=== PATIENT | male | born 1945 | race Caucasian/White ===

== ENCOUNTER → 2018-07-22 | Outpatient (CLI) | payer MEDICARE ==
[~2018-07-22] MED LIST: CRESTOR20 MG PO; FINASTERIDE5 MG PO; FLOMAX0.4 MG PO; IOPAMIDOL 370 MG/ML 200 ML INFUS..BTL INJ ONE; LISINOPRIL10 MG PO; METOPROLOL SUCC25 MG PO; PACERONE100 MG PO; SODIUM CHLORIDE 0.9% 100 ML 100 ML ONE; SODIUM CHLORIDE 0.9% 250ML 250 ML ONE; SODIUM CHLORIDE 0.9% 500ML 500 ML ONE; WARFARIN SODIUM1 MG PO; WARFARIN SODIUM2 MG PO
[2018-07-22 11:05] LABS: CREATININE, SERUM 1.5 mg/dL (0.72-1.25)
--- NOTE | 2018-07-23 09:10 | Diagnostic Imaging Report ---
History: Right neck blockage Comparison studies:None Technique: Axial images were obtained from the thoracic inlet. 3-D reconstructions and maximum intensity projection reformats were performed. Coronal and sagittal images reconstructed from the axial data. Intravenous contrast: 100 cc of Omnipaque 300. Dose modulation, iterative reconstruction, and/or weight based adjustment of the mA/kV was utilized to reduce the radiation dose to as low as reasonably achievable. Findings: Percentage of stenosis will be based on the NASCET criteria. Aortic arch and major vessels: Patent. Nonstenotic atherosclerotic calcifications of the aortic arch and branches. Common carotid arteries: Patent. Nonstenotic calcified and noncalcified plaque at the distal right common carotid artery. Right internal carotid artery: Patent. Calcified and noncalcified plaque at the right carotid bulb results in more than 70% stenosis. Nonstenotic atherosclerotic calcifications of the carotid siphon. Left internal carotid artery: Patent. Calcified and noncalcified atherosclerotic plaque at the bulb, proximal cervical and cavernous internal carotid artery results in less than 10% stenosis. Right vertebral artery: Patent. Calcified atherosclerotic plaque at the proximal cervical segment (V1) results in 40-50% stenosis. Left vertebral artery: More than 90% stenosis at the proximal cervical segment (V1) with some areas of nonopacification. Distal reconstitution with good opacification of the V2, V3 and V4 segments. Multiple subcentimeter thyroid hypodensities partially visualized, cannot be further corrected right. Sternotomy changes partially visualized. Cervical spine: C4-5, obliterated intervertebral space. Diffuse disc osteophyte complex, bilateral uncinate process hypertrophy and facet hypertrophy results in mild canal stenosis, severe right and moderate left foraminal narrowing. C5-6, obliterated intervertebral space. Bilateral uncinate process hypertrophy and facet hypertrophy results in mild canal stenosis, severe right and moderate left foraminal narrowing. At C6-7, obliterated intervertebral space. Diffuse disc osteophyte complex, bilateral uncinate process hypertrophy results in mild canal stenosis and moderate bilateral foraminal narrowing. IMPRESSION: Severe stenosis at the right carotid bulb secondary to calcified and noncalcified atherosclerotic plaque. Severe long segment stenosis at the proximal cervical left vertebral artery (V1 segment) with good distal opacification. Moderate stenosis at the proximal right vertebral artery (V1 segment). Other scattered atherosclerotic plaque without hemodynamically significant stenosis. Degenerative changes of the cervical spine as described Signed by: DR Greg Farmer M.D. on 07/23/2018 9:07 AM
== END ==
LOC: EDBD 09:57 → CT 09:57
PROVIDERS: ATTEND Internal Medicine Cardiovascular Disease
DX: I65.21 Occlusion and stenosis of right carotid artery (principal)
CPT/HCPCS: 36415; 70498; 82565; 84520; 96361; J7040; J7050; Q9967; 96360

== ENCOUNTER 2018-08-06 07:38 | Inpatient (IN) | payer MEDICARE ==
--- NOTE | 2018-08-03 10:53 | Diagnostic Imaging Report ---
PROCEDURE: Frontal and lateral views of the chest. COMPARISON: None. INDICATIONS: PREOPERATIVE CHEST XRAY FOR SURGERY FINDINGS: Lines/tubes: None. Lungs: Moderate lung volumes. Mild patchy opacities at the lung bases. No evidence of lobar consolidation or pulmonary edema. Linear subsegmental atelectasis at the left mid lung zone. Pleura: There is no pleural effusion or pneumothorax. Heart and mediastinum: The cardiomediastinal silhouette is unremarkable. Atherosclerotic aortic calcification. Bones: No acute bony abnormality. Status post median sternotomy. IMPRESSION: Mild patchy bibasilar opacities, likely atelectasis. No acute radiographic abnormality. Dictated by: CHAVA BERMUDEZ M.D. on 08/03/2018 at 11:03 Electronically approved by: CHAVA BERMUDEZ M.D. on 08/03/2018 at 11:03
[2018-08-03 11:02] LABS: INR 1.27
[2018-08-03 11:03] LABS: PARTIAL THROMBOPLASTIN TIME 29.4 seconds (23.8-35.5)
[2018-08-03 11:07] LABS: ANION GAP 12.5 mmol/L (8-16); CALCIUM 10.4 mg/dL (8.4-10.2); CREATININE, SERUM 1.47 mg/dL (0.72-1.25); POTASSIUM 4.5 mmol/L (3.5-5.1)
[2018-08-03 11:34] LABS: BASOPHILS # (AUTO) 0.1 (0.0-0.1); EOSINOPHILS # (AUTO) 0.5 (0.0-0.4); HEMOGLOBIN 15.4 g/dL (14.0-18.0); LYMPHOCYTES # (AUTO) 3.7 (1.0-3.2); LYMPHOCYTES % 40.3 % (18.0-39.1); MEAN CORPUSCULAR HEMOGLOBIN 32.5 pg (28-32); MEAN CORPUSCULAR HGB CONC 32.1 g/dL (31-35); MEAN CORPUSCULAR VOLUME 101.3 fL (81-99); MONOCYTES % 10.7 % (4.4-11.3); NEUTROPHILS # (AUTO) 3.9 (2.1-6.9); NEUTROPHILS % 42.8 % (38.7-80.0); PLATELET COUNT 238 x10e3/uL (140-360); RED BLOOD COUNT 4.74 x10e6/uL (4.3-5.7); RED CELL DISTRIBUTION WIDTH 14.4 % (11.7-14.4)
[2018-08-06] VITALS (23 sets, daily range): BP systolic 110–154; BP diastolic 55–88
[~2018-08-06] VITALS: Ht 185.4 cm; Wt 97.6 kg
[~2018-08-06 07:38] MED LIST changes: -IOPAMIDOL 370 MG/ML 200 ML INFUS..BTL INJ ONE; -SODIUM CHLORIDE 0.9% 100 ML 100 ML ONE; -SODIUM CHLORIDE 0.9% 250ML 250 ML ONE; -SODIUM CHLORIDE 0.9% 500ML 500 ML ONE
--- OUTSIDE RECORDS SUMMARY | 2018-08-06 07:40 | XMS REPORT ---
Author Author [facility] Address Unknown Phone Unavailable Care Team Providers Care Application Development Director Name Role Phone IRENE GARCIA Unavailable Unavailable ALICE VAUGHN Unavailable Unavailable Problems This patient has no known problems. Allergies, Adverse Reactions, Alerts This patient has no known allergies or adverse reactions. Medications This patient has no known medications. Results Test Description Test Time Test Comments Text Results Atomic Results Result Comments CHEST 2 VIEWS 2018-08-03 11:03:00 [place] [address] Patient Name: LIANE GONZALEZ MR #: [id number] : 1945 Age/Sex: 73/M Req #: [id number] Adm Physician: Ordered by: IRENE GARCIA MD Report #: [id number] Location: OR Room/Bed: Procedure: [id number] DX/CHEST 2 VIEWS Exam Date: Exam Time: REPORT STATUS: Signed PROCEDURE: Frontal and lateral views of the chest. COMPARISON: None. INDICATIONS: PREOPERATIVE CHEST XRAY FOR SURGERY FINDINGS: Lines/tubes: None. Lungs: Moderate lung volumes. Mild patchy opacities at the lung bases. No evidence of lobar consolidation or pulmonary edema. Linear subsegmental atelectasis at the left mid lung zone. Pleura: There is no pleural effusion or pneumothorax. Heart and mediastinum: The cardiomediastinal silhouette is unremarkable. Atherosclerotic aortic calcification. Bones: No acute bony abnormality. Status post median sternotomy. IMPRESSION: Mild patchy bibasilar opacities, likely atelectasis. No acute radiographic abnormality. Dictated by: CHAVA BERMUDEZ M.D. on 08/03/2018 at 11:03 Electronically approved by: CHAVA BERMUDEZ M.D. on 08/03/2018 at 11:03 Dictated By: CHAVA BERMUDEZ MD 1103 Transcribed By: MARIVEL on 08/03/18 1103 COPY TO: IRENE GARCIA MD CTA NECK 2018-07-23 08:41:00 [place] [address] Patient Name: LIANE GONZALEZ MR #: [id number] : 1945 Age/Sex: 73/M Req #: [id number] Adm Physician: Ordered by: ALICE VAUGHN MD Report #: [id number] Location: CT Room/Bed: Procedure: [id number] CT/CTA NECK Exam Date: 07/22/18 Exam Time: 1200 REPORT STATUS: Signed History: Right neck blockage Comparison studies:None Technique: Axial images were obtained from the thoracic inlet. 3-D reconstructions and maximum intensity projection reformats were performed. Coronal and sagittal images reconstructed from the axial data. Intravenous contrast: 100 cc of Omnipaque 300. Dose modulation, iterative reconstruction, and/or weight based adjustment of the mA/kV was utilized to reduce the radiation dose to as low as reasonably achievable. Findings: Percentage of stenosis will be based on the NASCET criteria. Aortic arch and major vessels: Patent. Nonstenotic atherosclerotic calcifications of the aortic arch and branches. Common carotid arteries: Patent. Nonstenotic calcified and noncalcified plaque at the distal right common carotid artery. Right internal carotid artery: Patent. Calcified and noncalcified plaque at the right carotid bulb results in more than 70% stenosis. Nonstenotic atherosclerotic calcifications of the carotid siphon. Left internal carotid artery: Patent. Calcified and noncalcified atherosclerotic plaque at the bulb, proximal cervical and cavernous internal carotid artery results in less than 10% stenosis. Right vertebral artery: Patent. Calcified atherosclerotic plaque at the proximal cervical segment (V1) results in 40-50% stenosis. Left vertebral artery: More than 90% stenosis at the proximal cervical segment (V1) with some areas of nonopacification. Distal reconstitution with good opacification of the V2, V3 and V4 segments. Multiple subcentimeter thyroid hypodensities partially visualized, cannot be further corrected right. Sternotomy changes partially visualized. Cervical spine: C4-5, obliterated intervertebral space. Diffuse disc osteophyte complex, bilateral uncinate process hypertrophy and facet hypertrophy results in mild canal stenosis, severe right and moderate left foraminal narrowing. C5-6, obliterated intervertebral space. Bilateral uncinate process hypertrophy and facet hypertrophy results in mild canal stenosis, severe right and moderate left foraminal narrowing. At C6-7, obliterated intervertebral space. Diffuse disc osteophyte complex, bilateral uncinate process hypertrophy results in mild canal stenosis and moderate bilateral foraminal narrowing. IMPRESSION: Severe stenosis at the right carotid bulb secondary to calcified and noncalcified atherosclerotic plaque. Severe long segment stenosis at the proximal cervical left vertebral artery (V1 segment) with good distal opacification. Moderate stenosis at the proximal right vertebral artery (V1 segment). Other scattered atherosclerotic plaque without hemodynamically significant stenosis. Degenerative changes of the cervical spine as described Signed by: DR Greg Farmer M.D. on 07/23/2018 9:07 AM Dictated By: GREG JOY MD 6 Transcribed By: MARY on 07/23/18906 COPY TO: ALICE VAUGHN MD
[2018-08-06] MEDS ORDERED: HEPARIN SOD/SOD CHLORIDE 1,000 ML ONE (08:18)
[2018-08-06 09:10] LABS: INR 0.95; PROTHROMBIN TIME 13.6 seconds (11.9-14.5)
[2018-08-06 09:11] LABS: PARTIAL THROMBOPLASTIN TIME 27.3 seconds (23.8-35.5)
[2018-08-06] MEDS ORDERED: SODIUM CHLORIDE 0.9% 500ML 500 ML ONE (09:21)
[2018-08-06] MEDS ORDERED: HEPARIN SOD (PORCINE) 1000 UNIT/ML 30ML ONE (09:21)
[2018-08-06] MEDS ORDERED: LIDOCAINE HCL 1% 2 ML AMP ONE (09:21)
[2018-08-06] MEDS ORDERED: MUPIROCIN 2% OINT 22 GM TUBE ONE (09:21)
[2018-08-06] MEDS ORDERED: PROTAMINE SULFATE 10 MG/ML 5 ML VIAL ONE (09:21)
[2018-08-06] MEDS ORDERED: GELATIN SPONGE 12-7MM ONE ×2 (09:22→10:17)
[2018-08-06] MEDS ORDERED: THROMBIN-JMI W/DIL SPRAY PUMP ACTUATOR 20000 UNIT KIT ONE (12:06)
[2018-08-06 12:32] LABS: BASOPHILS # (AUTO) 0.1 (0.0-0.1); BASOPHILS % 0.6 % (0.0-1.0); EOSINOPHILS # (AUTO) 0.3 (0.0-0.4); EOSINOPHILS % 2.8 % (0.0-6.0); HEMATOCRIT 41.6 % (38.2-49.6); HEMOGLOBIN 13.9 g/dL (14.0-18.0); LYMPHOCYTES # (AUTO) 4.4 (1.0-3.2); LYMPHOCYTES % 37.2 % (18.0-39.1); MEAN CORPUSCULAR HEMOGLOBIN 33.1 pg (28-32); MEAN CORPUSCULAR HGB CONC 33.4 g/dL (31-35); MONOCYTES # (AUTO) 0.5 (0.2-0.8); MONOCYTES % 4.1 % (4.4-11.3); NEUTROPHILS # (AUTO) 6.6 (2.1-6.9); PLATELET COUNT 209 x10e3/uL (140-360); RED CELL DISTRIBUTION WIDTH 14.1 % (11.7-14.4)
[2018-08-06 12:53] LABS: ALBUMIN 3.4 g/dL (3.5-5.0); ALBUMIN/GLOBULIN RATIO 1.2 (0.8-2.0); ANION GAP 12.9 mmol/L (8-16); CALCIUM 9.4 mg/dL (8.4-10.2); CREATININE, SERUM 1.29 mg/dL (0.72-1.25); POTASSIUM 4.9 mmol/L (3.5-5.1)
[2018-08-06] MEDS ORDERED: LABETALOL HCL 5 MG/ML 20ML VIAL IV PRN (13:15)
[2018-08-06] MEDS ORDERED: SODIUM CHLORIDE FLUSH 10 ML SYR INJ PRN (13:15)
[2018-08-06] MEDS ORDERED: HYDROCODONE/APAP 5MG-325MG TAB PO PRN (13:15)
[2018-08-06] MEDS ORDERED: ONDANSETRON HCL 4 MG ORAL DISINTEGRATING TAB PO PRN (13:15)
[2018-08-06] MEDS ORDERED: MORPHINE SULFATE 2 MG/ML SYR ONE (13:18)
[2018-08-06] MEDS: MORPHINE SULFATE 2 MG/ML SYR IV PRN ×2 (13:30→16:30)
[2018-08-06] MEDS: SODIUM CHLORIDE 0.9% 1000ML 1,000 ML IV SCH (14:00)
[2018-08-06] MEDS ORDERED: MIDAZOLAM HCL 2 MG/2 ML VIAL ONE (15:02)
[2018-08-06] MEDS ORDERED: FENTANYL CITRATE/PF 100MCG/2 ML INJ ONE (15:02)
--- NOTE | 2018-08-06 15:51 | Consultation ---
DATE OF CONSULTATION: August 06, 2018 CARDIOLOGY CONSULTATION REASON FOR CONSULTATION: Status post right carotid endarterectomy. HISTORY OF PRESENT ILLNESS: This is a pleasant, 73-year-old male who presented for outpatient right CEA. He was found to have a right carotid stenosis, and he was referred to Dr. Arreola for surgery. Today, he had a successful right CEA and he is doing good in the ICU. He has a history of chronic atrial fibrillation anticoagulated on Coumadin, which has been on hold due to the surgery. He denied any chest pain, any palpitations, any dizziness, any shortness of breath, any diaphoresis or headache. PAST MEDICAL HISTORY: Atrial fibrillation, BPH, hypertension, right carotid stenosis, hyperlipidemia and umbilical hernia. PAST SURGICAL HISTORY: CABG in 2013 and hernia repair. FAMILY HISTORY: Noncontributory. SOCIAL HISTORY: No smoking, no drinking. MEDICATIONS: See med list. ALLERGIES: PENICILLIN. REVIEW OF SYSTEMS: Negative except those mentioned above. He is status post right CEA. PHYSICAL EXAMINATION VITAL SIGNS: Temperature 98.2, heart rate 50, blood pressure 152/83, respirations 20, oxygen saturation 97%. GENERAL: He is awake, alert and oriented x3. HEENT: Mucous membranes moist. NECK: Supple. He has dressing on the right side of the neck with ice pack. CARDIOVASCULAR: S1 and S2 present. ABDOMEN: Soft. NEUROLOGIC: Intact. EXTREMITIES: No edema. LABORATORY DATA: Sodium 135, potassium 4.9, chloride 107, CO2 of 20, BUN 12, creatinine 1.29, glucose 134, white blood cells 11.9, hemoglobin 13.9, hematocrit 41.6, platelets 209,000, PT 13.6, PTT 27.3. INR 0.95. IMPRESSION 1. Right carotid stenosis. 2. Atrial fibrillation. 3. Hypertension. 4. Bradycardia. 5. History of benign prostatic hypertrophy. PLAN: 1. He is status post right carotid endarterectomy and he is doing good. 2. Will go ahead and continue with Lovenox. Coumadin on hold and will resume when okay with surgeon. Due to the bradycardia, he is asymptomatic. Will go ahead and hold the beta darnell today. Will continue his other home medications. Will go ahead and get an echocardiogram since there is none on record. Further cardiac workup pending clinical course. Thank you for this consultation. Dictated by Alta Aguilar NP Job#: [id number] GH
[2018-08-06] MEDS ORDERED: MORPHINE SULFATE INJ 4 MG/ML INJ IV PRN (16:45)
[2018-08-06] MEDS ORDERED: MORPHINE SULFATE 2 MG/ML SYR IV PRN (16:45)
[2018-08-06] MEDS: TAMSULOSIN HCL 0.4 MG CAP PO SCH (17:00)
--- NOTE | 2018-08-06 17:42 | Operative Report ---
DATE OF PROCEDURE: August 06, 2018 SAND SLINGER: Bobo Vasquez PREOPERATIVE DIAGNOSIS: Severe right carotid stenosis. POSTOPERATIVE DIAGNOSIS: Severe right carotid stenosis. OPERATION: Right carotid endarterectomy. DESCRIPTION OF OPERATION: After the satisfactory accomplishment of general anesthesia, the patient's right neck was prepped and draped in a sterile fashion. A standard right carotid incision was made along the anterior border of the sternomastoid muscle. The incision was carried down through the subcutaneous tissues to expose the right common carotid artery. The vessel was dissected free from the surrounding tissues and looped with a vessel loop. The dissection was carried distally to expose the internal carotid artery and the external carotid artery and its branches. Care was taken to identify and preserve all nerve structures in the region. Systemic heparin was given through a central vein cannula for the purposes of anticoagulation. The common, external and internal carotid arteries were briefly cross clamped. A long incision was made in the common carotid artery and carried distally through the bifurcation and well up into the internal carotid artery. A severely obstructing atherosclerotic plaque was quickly encountered. The plaque was removed using standard endarterectomy techniques. Following this, an indwelling shunt was placed in the common carotid artery proximally and the internal carotid artery distally thereby re-establishing blood flow to the right side of the brain for the remainder of the case. The surface of the vessel was then smoothed, and all loose debris was carefully removed. Heparinized saline flushes were routinely employed. A previously constructed Dacron patch was brought into the operative field and used to close the arteriotomy site. Running 7-0 Prolene was used for this patch closure. Prior to completing the closure, the shunt was removed and the vessel was flushed free from all air and debris. Once the sutures were tied, excellent pulses were located within the patch area and beyond. Protamine was given to counteract the effects of the heparin. All bleeding points were carefully cauterized, ligated or oversewn. The wound was then thoroughly irrigated with antibiotic solution, and closed in layers with interrupted 2-0 Vicryl for the deep tissues, and Monocryl subcuticular stitches for the skin. The patient was awakened in the operating room and found to be neurologically intact. The patient tolerated the procedure well, and was returned to the intensive care unit in good condition. Job#: [id number] CLINT
[2018-08-06] MEDS ORDERED: ONDANSETRON HCL INJ 2 MG/ML VIAL ONE (17:54)
[2018-08-06] MEDS ORDERED: LIDOCAINE HCL 2% LOCAL INJ 5 ML SDV VIAL INJ ONE (17:54)
[2018-08-06] MEDS ORDERED: DEXAMETHASONE SOD PHOS INJ 4 MG/ML VIAL ONE (17:54)
[2018-08-06] MEDS ORDERED: ROCURONIUM BROMIDE 10 MG/ML 5ML VIAL ONE (17:54)
[2018-08-06] MEDS ORDERED: SEVOFLURANE INHAL SOLN 250 ML PEN BTL ONE (17:54)
[2018-08-06] MEDS ORDERED: PROPOFOL IV EMULSION 10 MG/ML 20 ML VIAL ONE (17:54)
--- NOTE | 2018-08-06 18:14 | Consultation ---
DATE OF CONSULTATION: August 06, 2018 PULMONARY/CRITICAL CARE CONSULTATION REFERRING PHYSICIAN: Dr. Wes Arreola. CHIEF COMPLAINT: Is recent carotid endarterectomy, hypertension and history of thromboembolic disease. HISTORY OF PRESENT ILLNESS: The patient is a 73-year-old man. He had coronary bypass grafting 7 years ago. He had complications after the surgery including DVT and pulmonary embolism. He was placed on anticoagulants. He also developed atrial fibrillation and has remained on anticoagulants. The patient recently had a cardiovascular evaluation. His stress test showed no evidence of coronary artery disease but an arterial Duplex and subsequent CTA of the carotid arteries showed carotid artery stenosis. He underwent a right internal carotid endarterectomy. The procedure went well. The surgeon used a shunt and a Dacron graft was placed. PAST MEDICAL HISTORY: 1. DVT and pulmonary embolism. 2. Hypertension. PAST SURGICAL HISTORY: 1. Status post coronary artery bypass grafting 7 years ago. 2. Status post recent carotid enterectomy. FAMILY HISTORY: The family history is noncontributory. SOCIAL HISTORY: The patient is not an active smoker or drinker. ALLERGIES: PENICILLIN. REVIEW OF SYSTEMS: There is no fever or headache. He does have some difficulty with the perioral muscles on the right side of his face. He complains of some pain at the surgical site. He has no chest pain. He has no difficulty breathing. There is no abdominal pain. There is no nausea or vomiting. He has no hand weakness or leg weakness. PHYSICAL EXAMINATION: VITAL SIGNS: The patient is afebrile. Vital signs are stable. HEENT: Examination shows no facial swelling or erythema. Nasal mucosa is normal. The oropharynx is normal. LYMPHATIC: Examination shows no submandibular, cervical or supraclavicular adenopathy. CARDIAC: Exam reveals regular rate and rhythm with normal S1 and S2. No murmurs or rubs. LUNGS: Reveals clear breath sounds bilaterally. There is no wheezing. ABDOMEN: Is soft and nontender. There is no rebound or guarding. EXTREMITIES: Shows no leg edema or calf tenderness. There is no cyanosis or clubbing. SKIN: Examination shows no rashes. IMPRESSION 1. History of DVT and pulmonary embolism 6 years ago. 2. Atrial fibrillation. 3. Recent carotid endarterectomy. 4. Some swelling or paralysis of perioral muscles on the right side. PLAN: 1. Patient will be started on DVT prophylaxis. 2. Restart lisinopril, amiodarone and other cardiac medications. 3. Continue to monitor the facial muscles to make sure that the patient's function returns to normal. 4. Postoperative wound care and pain control. Job#: [id number] DANIELLE
[2018-08-06] MEDS ORDERED: NON-FORMULARY MEDICATION (Rosuvastatin Calcium (Crestor) 20 MG) PO SCH (21:00)
[2018-08-06] MEDS: CRESTOR 10MG PO SCH (21:05)
[2018-08-07] VITALS (49 sets, daily range): BP systolic 86–154; BP diastolic 31–100
[2018-08-07] MEDS: SODIUM CHLORIDE 0.9% 1000ML 1,000 ML IV SCH ×3 (00:03→19:15)
[2018-08-07 04:32] LABS: BASOPHILS % 0.1 % (0.0-1.0); HEMATOCRIT 38.7 % (38.2-49.6); HEMOGLOBIN 12.9 g/dL (14.0-18.0); LYMPHOCYTES # (AUTO) 2.4 (1.0-3.2); LYMPHOCYTES % 16.2 % (18.0-39.1); MEAN CORPUSCULAR HGB CONC 33.3 g/dL (31-35); MONOCYTES # (AUTO) 1.4 (0.2-0.8); MONOCYTES % 9.5 % (4.4-11.3); NEUTROPHILS # (AUTO) 10.8 (2.1-6.9); NEUTROPHILS % 73.8 % (38.7-80.0); PLATELET COUNT 200 x10e3/uL (140-360); RED BLOOD COUNT 3.91 x10e6/uL (4.3-5.7); RED CELL DISTRIBUTION WIDTH 14.3 % (11.7-14.4)
[2018-08-07 04:53] LABS: ANION GAP 13.8 mmol/L (8-16); BLOOD UREA NITROGEN 15 mg/dL (7-26); BUN/CREATININE RATIO 13 (6-25); CALCIUM 9.2 mg/dL (8.4-10.2); CARBON DIOXIDE 19 mmol/L (22-29); CHLORIDE 109 mmol/L (98-107); CREATININE, SERUM 1.13 mg/dL (0.72-1.25); EST GLOMERULAR FILTRATION RATE > 60 ML/MIN (60-); GLUCOSE 124 mg/dL (74-118); POTASSIUM 4.8 mmol/L (3.5-5.1); SODIUM 137 mmol/L (136-145)
[2018-08-07] MEDS: FINASTERIDE 5 MG TAB PO SCH (08:49)
[2018-08-07] MEDS: TAMSULOSIN HCL 0.4 MG CAP PO SCH ×2 (08:49→16:20)
[2018-08-07] MEDS: LISINOPRIL 10 MG TAB PO SCH (08:49)
[2018-08-07] MEDS: AMIODARONE HCL 200 MG TAB PO SCH (08:49)
[2018-08-07] MEDS: ENOXAPARIN SOD INJ 40 MG/0.4 ML SYR SC SCH (08:49)
[2018-08-07] MEDS ORDERED: NON-FORMULARY MEDICATION (Amiodarone Hcl (Pacerone) 100 MG) PO SCH (09:00)
--- NOTE | 2018-08-07 16:05 | Diagnostic Imaging Report ---
EXAMINATION: MRI of the brain without contrast. HISTORY: Left facial drooping, right endarterectomy the day before. COMPARISON: CTA on 07/22/2019 TECHNIQUE: Sagittal T2; axial DWI, T2, FLAIR, T1-IR, T2 gradient echo; coronal FLAIR. IMAGE QUALITY: Adequate. FINDINGS: Parenchyma: 1. 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 2. Few scatter T2 and FLAIR hyperintense foci, most likely nonspecific chronic microvascular ischemic changes. 3. No mass, hemorrhage, or acute infarcts. Skull: Possible right parietal scalp scar . Vessels: Expected flow voids present in the major arteries and dural sinuses. Extra-axial spaces: No abnormal signal intensity or mass effect. Brain volume: Within normal limits for age. Ventricles: No hydrocephalus or displacement. Foramen magnum: Unremarkable. Sella: Unremarkable. Paranasal / mastoid sinuses: No significant inflammatory disease. IMPRESSION: 1. No acute infarcts. 2. Mild chronic microvascular ischemic changes. 3. Chronic left cerebellar infarct. Signed by: Dr. Faviola Celaya M.D. on 08/07/2018 4:02 PM
--- NOTE | 2018-08-07 16:17 | Consultation ---
DATE OF CONSULTATION: August 07, 2018 NEUROLOGICAL CONSULTATION HISTORY OF PRESENT ILLNESS: Mr. Butler is a 73-year-old man with past medical history significant for hypertension, hyperlipidemia, atrial fibrillation, and prior thromboembolic event, admitted to [facility] on August 06, 2018, for a right carotid endarterectomy. As stated above, Mr. Butler underwent a right carotid endarterectomy with Dr. Wes Arreola on August 06, 2018. There were no reported complications during the procedure. Sometime on either August 06 or August 07, the patient was noted by multiple medical staff to have left facial asymmetry while smiling. More specifically, when smiling, the left corner of the mouth does not turn up. There is no facial asymmetry at rest, nor is there impairment in any other facial movements. Mr. Butler does not report a visual field cut or other disturbance, dysarthria, aphasia, hemiparesis, hemihypesthesia, dizziness, or confusion. The patient has not been allowed to ambulate postoperatively; so, he cannot say with certainty as to whether or not his gait or balance is impaired. Mr. Butler has not experienced similar symptoms previously. REVIEW OF SYSTEMS: Left facial asymmetry/weakness. Otherwise, the 12 point review of systems is negative. PAST MEDICAL HISTORY: Hypertension, hyperlipidemia, atrial fibrillation, history of a deep venous thrombosis and pulmonary embolus, benign prostatic hypertrophy. PAST SURGICAL HISTORY: Umbilical hernia repair, 4-vessel CABG, right carotid endarterectomy. PAST HOSPITALIZATIONS: Surgeries/procedures as listed. FAMILY HISTORY: The patient's paternal and maternal grandparents are . Their medical histories are unknown. The patient's father is from coronary artery disease with a myocardial infarction. His mother is from coronary artery disease with a myocardial infarction. Mr. Butler has brothers but is estranged from them. The patient has 1 son and 1 daughter, both of whom are alive and healthy. SOCIAL HISTORY: Mr. Butler is . He is retired. The patient does not report current or prior tobacco, alcohol, or recreational drug use. HOME MEDICATIONS: Warfarin 1 mg by mouth Mondays, Wednesdays, Fridays, Saturdays, and Sundays. Warfarin 2 mg by mouth on Tuesdays and . Amiodarone 100 mg by mouth daily. Lisinopril 10 mg by mouth daily. Metoprolol 25 mg by mouth twice daily. Rosuvastatin 20 mg by mouth at bedtime daily. Tamsulosin 0.4 mg by mouth twice daily. Finasteride 5 mg by mouth daily. ALLERGIES: PENICILLIN. NO KNOWN FOOD ALLERGIES. NO KNOWN ALLERGIES TO LATEX. NO KNOWN ALLERGIES TO IODINE OR OTHER CONTRAST MATERIALS. PHYSICAL EXAMINATION: VITAL SIGNS: Height 73 inches, weight 214.5 pounds, BMI 28.3 kg per meter squared. Blood pressure 112/54 mmHg. Pulse 84 beats per minute. Respiratory rate 16 breaths per minute. Oxygen saturation 97% on room air. GENERAL: The patient is awake and alert. Does not appear distressed. Overweight. HEENT: Normocephalic, atraumatic. Pupils are equal, round, and reactive to light. Moist mucous membranes. NECK: Supple. No appreciable thyromegaly. No appreciable carotid bruits on the left. The right side of the neck is bandaged. CARDIOVASCULAR: S1, S2, regular rate and rhythm. No murmurs, rubs, or gallops. RESPIRATORY: Clear to auscultation bilaterally. No wheezes, rhonchi, or rales. EXTREMITIES: The skin is warm and dry. No clubbing, cyanosis, or edema. The posterior tibial and dorsalis pedis pulses are 2+ and symmetric. SKIN: No rashes or lesions. NEUROLOGIC: Memory/Attention: The patient is awake and alert. Oriented to person, place, time, and situation. Cranial Nerves: Cranial nerve 1--Not tested. Cranial nerve 2, 3, 4 and 6--Pupils are equal and round, react briskly to light (from 4 mm to 2 mm). Extraocular movements intact. No nystagmus. Cranial nerve 5--Sensation to light touch is intact in the bilateral V1 through V3 distributions. Strength of the temporalis and masseter muscles is within normal limits. Cranial nerve 7--The face is symmetric at rest. There is left facial asymmetry noted with smiling only. There is subtle weakness of the lower facial muscles on the left side. Cranial nerve 8--Hearing is intact to finger rub bilaterally. Cranial nerve 9, 10--The soft palate elevates equally and symmetrically. Cranial nerve 11--Normal strength of the bilateral sternocleidomastoid and trapezius muscles. Cranial nerve 12--The tongue protrudes midline and moves symmetrically from side to side. Strength: Bulk is normal. Strength is 5/5 in the bilateral deltoids, biceps, triceps, wrist flexors and extensors, finger flexors and extensors, intrinsic hand muscles, hip flexors, knee flexors and extensors, ankle dorsiflexion and plantarflexion, and intrinsic foot muscles. Tone is normal. DTRs: Deep tendon reflexes are 2+ and symmetric at the triceps, biceps, brachioradialis, and patellas. Deep tendon reflexes are trace and symmetric at the Achilles. Plantar responses are flexor bilaterally. Sensation: Sensation is intact to light touch and pinprick in both arms and both legs. Cerebellar: Phshih-igkw-iznsel and heel-wilkinson movements are intact without dysmetria or other impairment. Gait: Deferred. Speech: Spontaneous speech is normal without appreciable dysarthria or aphasia. Repetition is intact. Involuntary Movements: None. Pronator Drift: None. LABORATORY DATA: A basic metabolic panel is significant for a chloride of 109, carbon dioxide of 19, and serum glucose of 124. A liver function panel drawn on August 06, 2018, is significant for a total protein of 6.3 and an albumin of 3.4. The CBC with differential and platelets reveals an elevated white blood cell count of 14.70 with 73.8% neutrophils, 16.2% lymphocytes, 9.5% monocytes, 0.0% eosinophils, and 0.1% basophils. The hemoglobin and hematocrit are 12.9 and 38.7, respectively. The platelet count is 200. The coagulation profile is within normal limits. DIAGNOSTIC STUDIES: A chest x-ray performed on August 03, 2018, revealed mild patchy bibasilar opacities, likely atelectasis. No acute radiographic abnormality. ASSESSMENT AND PLAN: Mr. Butler is a 73-year-old man with past medical history as detailed, admitted to [facility] on August 06, 2018, for right carotid endarterectomy. Status post right carotid endarterectomy, the patient was noted to have left facial asymmetry with smiling only. Other than this, the patient's neurological examination is nonfocal. Mr. Butler's laboratory data and other diagnostic studies have been reviewed and are documented above. 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 However, when undergoing a carotid endarterectomy, there is a risk of part of the plaque breaking off, traveling to the brain, and causing a stroke. Therefore, an MRI of the brain without contrast will be ordered for further evaluation. If this study is negative, Mr. Butler may be safely discharged to home tomorrow, August 08, 2018. Thank you for this consultation. I will continue to follow the patient while he remains in the hospital. Time spent 70 minutes. Job#: [id number]
[2018-08-07] MEDS ORDERED: WARFARIN SOD 1 MG TAB PO SCH (17:00)
[2018-08-07] MEDS: CRESTOR 10MG PO SCH (20:29)
[2018-08-08] VITALS (13 sets, daily range): BP systolic 129–169; BP diastolic 73–100
[2018-08-08] MEDS: SODIUM CHLORIDE 0.9% 1000ML 1,000 ML IV SCH (05:15)
[2018-08-08] MEDS: AMIODARONE HCL 200 MG TAB PO SCH (08:40)
[2018-08-08] MEDS: LISINOPRIL 10 MG TAB PO SCH (08:40)
[2018-08-08] MEDS: TAMSULOSIN HCL 0.4 MG CAP PO SCH (08:44)
[2018-08-08] MEDS: ENOXAPARIN SOD INJ 40 MG/0.4 ML SYR SC SCH (08:48)
[2018-08-08] MEDS: FINASTERIDE 5 MG TAB PO SCH (08:48)
== END 2018-08-08 10:30 | disposition home or self-care (01) | DRG 39 ==
LOC: OR 07:38 → PACU V 12:14 → ICU 12:56
PROVIDERS: ADMIT Thoracic Surgery (Cardiothoracic Vascular Surgery); ATTEND Thoracic Surgery (Cardiothoracic Vascular Surgery)
PROC: 03UK0JZ Supplement Right Internal Carotid Artery with Synthetic Substitute, Open Approach (ICD-10-PCS; 2018-08-06)
PROC: 03CK0ZZ Extirpation of Matter from Right Internal Carotid Artery, Open Approach (ICD-10-PCS; principal; 2018-08-06 09:30)
DX: I65.21 Occlusion and stenosis of right carotid artery (principal); I48.2 Chronic atrial fibrillation; I10 Essential (primary) hypertension; E78.5 Hyperlipidemia, unspecified; R00.1 Bradycardia, unspecified; N40.0 Benign prostatic hyperplasia without lower urinary tract symptoms; J44.9 Chronic obstructive pulmonary disease, unspecified; G47.33 Obstructive sleep apnea (adult) (pediatric); I25.10 Atherosclerotic heart disease of native coronary artery without angina pectoris; R29.810 Facial weakness; Z95.1 Presence of aortocoronary bypass graft; Z86.718 Personal history of other venous thrombosis and embolism; Z86.711 Personal history of pulmonary embolism; Z79.01 Long term (current) use of anticoagulants; Z82.49 Family history of ischemic heart disease and other diseases of the circulatory system; Z88.0 Allergy status to penicillin
CPT/HCPCS: 36415; 70551; 71046; 80048; 80053; 85025; 85610; 85730; 86850; 86900; 86920; 88304; 88311; 93005; 93306; C1768; J1100; J1644; J1650; J2001; J2250; J2270; J2405; J2720; J7030; J7040

== ENCOUNTER 2019-06-05 08:37 | Emergency (ER) | payer MEDICARE, OTHER ==
[~2019-06-05] VITALS: Ht 185.4 cm; Wt 97.5 kg
[2019-06-05 10:29] LABS: BASOPHILS # (AUTO) 0.1 (0.0-0.1); BASOPHILS % 0.7 % (0.0-1.0); EOSINOPHILS # (AUTO) 0.4 (0.0-0.4); EOSINOPHILS % 3.1 % (0.0-6.0); HEMATOCRIT 46.6 % (38.2-49.6); HEMOGLOBIN 15.2 g/dL (14.0-18.0); LYMPHOCYTES # (AUTO) 4.3 (1.0-3.2); LYMPHOCYTES % 38.2 % (18.0-39.1); MEAN CORPUSCULAR HEMOGLOBIN 32.5 pg (28-32); MEAN CORPUSCULAR HGB CONC 32.6 g/dL (31-35); MEAN CORPUSCULAR VOLUME 99.8 fL (81-99); MONOCYTES # (AUTO) 1.2 (0.2-0.8); MONOCYTES % 10.8 % (4.4-11.3); NEUTROPHILS # (AUTO) 5.3 (2.1-6.9); PLATELET COUNT 260 x10e3/uL (140-360); RED BLOOD COUNT 4.67 x10e6/uL (4.3-5.7); RED CELL DISTRIBUTION WIDTH 14.5 % (11.7-14.4)
[2019-06-05 10:30] LABS: BILIRUBIN,URINE NEGATIVE (NEGATIVE); CLARITY,URINE CLEAR (CLEAR); COLOR,URINE YELLOW (YELLOW); KETONES,URINE NEGATIVE (NEGATIVE); LEUKOCYTE ESTERASE ,URINE NEGATIVE (NEGATIVE); NITRITE,URINE NEGATIVE (NEGATIVE); PROTEIN,URINE DIPSTICK NEGATIVE (NEGATIVE); URINE UROBILINOGEN 0.2 mg/dL (0.2 - 1)
[2019-06-05] MEDS ORDERED: TRAMADOL HCL 50 MG TAB PO NR (10:30)
[2019-06-05 10:40] LABS: BACTERIA,URINE RARE /HPF; EPITHELIAL CELLS,URINE FEW /LPF; RBC,URINE 0-5 /HPF (0-5); WBC,URINE (MAN) 0-5 /HPF (0-5)
[2019-06-05 10:48] LABS: ALBUMIN 3.8 g/dL (3.5-5.0); ANION GAP 14.5 mmol/L (8-16); CALCIUM 10.2 mg/dL (8.4-10.2); CREATININE, SERUM 1.45 mg/dL (0.72-1.25); POTASSIUM 4.5 mmol/L (3.5-5.1)
== END 2019-06-05 12:38 | disposition home or self-care (01) ==
LOC: ER 08:37
DX: R33.9 Retention of urine, unspecified (principal); N40.1 Benign prostatic hyperplasia with lower urinary tract symptoms; I10 Essential (primary) hypertension; I25.10 Atherosclerotic heart disease of native coronary artery without angina pectoris; Z95.1 Presence of aortocoronary bypass graft; K43.9 Ventral hernia without obstruction or gangrene
CPT/HCPCS: 36415; 80053; 81001; 85025; 87086; 99283

== ENCOUNTER 2019-06-06 09:52 | Emergency (ER) | payer MEDICARE ==
[~2019-06-06] VITALS: Ht 185.4 cm; Wt 93.4 kg
[2019-06-06 11:18] LABS: BILIRUBIN,URINE NEGATIVE (NEGATIVE); CLARITY,URINE CLEAR (CLEAR); COLOR,URINE YELLOW (YELLOW); KETONES,URINE NEGATIVE (NEGATIVE); LEUKOCYTE ESTERASE ,URINE NEGATIVE (NEGATIVE); NITRITE,URINE NEGATIVE (NEGATIVE); PROTEIN,URINE DIPSTICK NEGATIVE (NEGATIVE); URINE UROBILINOGEN 0.2 mg/dL (0.2 - 1)
[2019-06-06 11:35] LABS: BACTERIA,URINE RARE /HPF; EPITHELIAL CELLS,URINE FEW /LPF; RBC,URINE 0-5 /HPF (0-5); WBC,URINE (MAN) 0-5 /HPF (0-5)
== END 2019-06-06 12:44 | disposition home or self-care (01) ==
LOC: ER 09:52
DX: R33.9 Retention of urine, unspecified (principal); N40.1 Benign prostatic hyperplasia with lower urinary tract symptoms; I10 Essential (primary) hypertension; I25.10 Atherosclerotic heart disease of native coronary artery without angina pectoris; I48.91 Unspecified atrial fibrillation; K21.9 Gastro-esophageal reflux disease without esophagitis; E78.5 Hyperlipidemia, unspecified; I25.2 Old myocardial infarction; Z95.1 Presence of aortocoronary bypass graft; Z86.718 Personal history of other venous thrombosis and embolism
CPT/HCPCS: 51700; 81001; 87086; 99282

== ENCOUNTER 2019-06-12 13:15 | Emergency (ER) | payer MEDICARE ==
[~2019-06-12] VITALS: Ht 185.4 cm; Wt 93.4 kg
[2019-06-12 15:20] VITALS: BP 135/71
== END 2019-06-12 15:21 | disposition home or self-care (01) ==
LOC: ER 13:15
DX: N47.2 Paraphimosis (principal); I10 Essential (primary) hypertension; E78.5 Hyperlipidemia, unspecified; I48.91 Unspecified atrial fibrillation; I25.10 Atherosclerotic heart disease of native coronary artery without angina pectoris; K21.9 Gastro-esophageal reflux disease without esophagitis; Z95.1 Presence of aortocoronary bypass graft; Z79.01 Long term (current) use of anticoagulants
CPT/HCPCS: 99283